=== PATIENT | female | born 1960 | race Caucasian/White ===

== ENCOUNTER → 2016-09-16 | Outpatient (CLI) | payer BC ==
[~2016-09-16] MED LIST: CETI10TA84 PO; ESTRADIOL 1 MG PO
--- NOTE | 2016-09-16 13:50 | DIAGNOSTIC IMAGING REPORT ---
AP STANDING VIEW OF BOTH KNEES; 3 VIEWS LEFT KNEE CLINICAL HISTORY: Left knee pain. FINDINGS: An AP standing view of both knees with lateral, tunnel, and sunrise views of the left knee are obtained. No prior studies are available for comparison at the time of dictation. The skeletal structures are osteopenic. No fracture is seen. There is mild tricompartmental degenerative joint space narrowing, greatest at the patellofemoral articulation. A benign-appearing sclerotic lesion in the distal femur measures 2 cm and is typical in appearance for an enchondroma. No osteochondral defect is seen on the tunnel view. There are tiny patellar enthesophytes. A small joint effusion is suspected. The overlying soft tissues are within normal limits. Survey images of the right knee on the frontal view show no abnormality. IMPRESSION: 1. Suspect a small joint effusion. No acute bony abnormality is seen in the left knee. 2. Osteopenia and minimal degenerative change as above. 3. A benign-appearing sclerotic lesion in the distal femur likely represents an enchondroma. Electronically signed by: Meet Sellers M.D. 09/16/2016 1:48 PM Dictated Date/Time: 09/16/2016 1:46 PM
== END | disposition home or self-care (01) ==
LOC: C.RDSM 13:05
PROVIDERS: ATTEND Family Medicine
DX: M25.562 Pain in left knee (principal)

== ENCOUNTER → 2017-03-02 | Outpatient (CLI) | payer BC ==
--- NOTE | 2017-03-02 14:34 | MAMMOGRAPHY REPORT ---
BILATERAL DIGITAL SCREENING MAMMOGRAM TOMOSYNTHESIS WITH CAD: 03/02/2017 CLINICAL HISTORY: Routine screening. Patient has no complaints. TECHNIQUE: Breast tomosynthesis in addition to standard 2D mammography was performed. Current study was also evaluated with a Computer Aided Detection (CAD) system. COMPARISON: Comparison is made to exams dated: 02/25/2016 mammogram, 01/12/2015 mammogram, 05/17/2013 m ammogram, 04/18/2012 mammogram, 11/10/2009 mammogram - [facility], and 06/22/2006. BREAST COMPOSITION: The tissue of both breasts is heterogeneously dense, which may obscure small mas ses. FINDINGS: No suspicious masses, calcifications, or areas of architectural distortion are noted in ei ther breast. There has been no significant interval change compared to prior exams. Bilateral asymme tries and bilateral benign-appearing calcifications are stable compared to prior exams. IMPRESSION: ACR BI-RADS CATEGORY 2: BENIGN There is no mammographic evidence of malignancy. A 1 year screening mammogram is recommended. The pa tient will receive written notification of the results. Approximately 10% of breast cancers are not detected with mammography. A negative mammographic report should not delay biopsy if a clinically suggestive mass is present. Katia Crurie M.D. ah/:03/02/2017 09:09:46 Screen Vent Binder: Lilia FLOYD)(M), [facility] letter sent: Normal 1/2 BI-RADS Code: ACR BI-RADS Category 2: Benign
== END | disposition home or self-care (01) ==
LOC: C.MAMM 08:35
PROVIDERS: ATTEND Obstetrics & Gynecology
DX: Z12.31 Encounter for screening mammogram for malignant neoplasm of breast (principal)